=== PATIENT | female | born 1980 | race Caucasian/White ===

== ENCOUNTER 2019-10-19 20:51 | Emergency (ER) | payer MEDICAID ==
[~2019-10-19] VITALS: Ht 172.7 cm; Wt 52.9 kg
[2019-10-19 21:08] VITALS: BP 123/87
[2019-10-19] MEDS ORDERED: KETOROLAC 30 MG/1 ML ONE (21:54)
[2019-10-19] MEDS ORDERED: PROMETHAZINE 25 MG/ML, 1ML ONE (21:54)
[2019-10-19] MEDS ORDERED: PROMETHAZINE 25 MG/ML, 1ML IM ONE (22:00)
[2019-10-19] MEDS ORDERED: SODIUM CHLORIDE FLUSH 10ML SYR IVF ONE (22:00)
[2019-10-19] MEDS ORDERED: SODIUM CHLORIDE 0.9% 1,000ML IVBOLUS ONE (22:00)
[2019-10-19] MEDS ORDERED: KETOROLAC 30 MG/1 ML IVPush ONE (22:00)
[2019-10-19 22:23] LABS: BASOPHILS # (AUTO) 0.09 x10^3/uL (0-0.1); BASOPHILS % (AUTO) 1 % (0-1); EOSINOPHILS # (AUTO) 0.22 x10^3/uL (0-0.4); EOSINOPHILS % (AUTO) 2 % (1-7); LYMPHOCYTES # (AUTO) 1.18 x10^3/uL (1-3.4); LYMPHOCYTES % (AUTO) 10 % (22-44); MD NO; MEAN CORPUSCULAR HEMOGLOBIN 32.4 pg (27.0-34.8); MEAN CORPUSCULAR HGB CONC 33.5 g/dL (32.4-35.8); MEAN CORPUSCULAR VOLUME 96.7 fL (80-100); MONOCYTES # (AUTO) 0.84 x10^3/uL (0.2-0.8); MONOCYTES % (AUTO) 7 % (2-9); NEUTROPHILS # (AUTO) 9.98 x10^3/uL (1.8-6.8); NEUTROPHILS % (AUTO) 81 % (42-75); PLATELET COUNT 290 x10^3/uL (130-400); RED BLOOD COUNT 4.27 x10^6/uL (3.82-5.3)
[2019-10-19 22:29] LABS: CULTURE INDICATED? YES; MICROSCOPIC INDICATED
[2019-10-19 22:35] LABS: ALANINE AMINOTRANSFERASE 27 U/L (12-78); ALBUMIN 3.3 g/dL (3.4-5.0); ANION GAP 5 mmol/L (5-15); CALCIUM 8.9 mg/dL (8.5-10.1); CHLORIDE 111 mmol/L (98-107); CREATININE 1.36 mg/dL (0.55-1.02)
[2019-10-19 22:41] LABS: ALKALINE PHOSPHATASE 67 U/L (45-117); BILIRUBIN,TOTAL 0.1 mg/dL (0.2-1.0); TOTAL PROTEIN 7.3 g/dL (6.4-8.2)
--- NOTE | 2019-10-19 22:54 | NUR ---
Pt refused straight cath. Pt states "unless someone comes in here and puts me under, you aren't doing that." Pt informed of risks and benefits of procedure, pt still refused.
== END 2019-10-20 00:19 | disposition home or self-care (01) ==
LOC: ED 22:59
DX: G89.29 Other chronic pain (principal); R10.9 Unspecified abdominal pain; R11.2 Nausea with vomiting, unspecified; R19.7 Diarrhea, unspecified
CPT/HCPCS: 36415; 74176; 80053; 81001; 84703; 85025; 87086; 96361; 96372; 96374; 99285; J1885; J2550; J7030